=== PATIENT | female | born 1965 | race Caucasian/White ===

== ENCOUNTER 2016-12-20 07:13 | Emergency (ER) | payer OTHER ==
[2016-12-20 07:24] VITALS: BP 142/92; PULSE 90; TEMP 97.6; BMI 26.4
[2016-12-20] MEDS ORDERED: KETOROLAC TROMETHAMINE 60 MG/2 ML VIAL IM ONE (07:55)
--- NOTE | 2016-12-20 08:02 | PDOC ---
History of Present Illness - General Chief Complaint: Pain Stated Complaint: RT HIP PAIN Time Seen by Provider: 12/20/16 07:43 - History of Present Illness Initial Comments: 12/20/16 07:58 Chief complaint: Pain right buttock History of present illness: Patient was bending over yesterday, felt sudden pain in her right buttock radiating down the posterior aspect of the right thigh to the knee. Pain has persisted, there is stiffness. However she is ambulating adequately Review of systems: Denies distal numbness pain or weakness in the lower leg or foot. Denies chest pain, shortness of breath, abdominal pain, nausea, vomiting, diarrhea, urinary tract symptoms, vaginal bleeding or discharge Past medical history: Patient is healthy otherwise, without active medical or surgical problems other than mild hypertension controlled on Micardis Social/family history reviewed and noncontributory Physical exam: Alert oriented 3 well-developed well-nourished no acute distress cheerful and cooperative Afebrile, vital signs normal Head atraumatic. PERRLA, ENT clear Neck supple without bruit mass or nodes Chest clear CV regular without murmur or gallop Abdomen benign Spine: No point tenderness or deformity of the lumbar spine. There is no appreciable straightening and no spasm. There is no tenderness or inflammation of the spine or the right buttock. However, the patient indicates shooting pains from the buttock through the posterior thigh. Straight leg raising is negative. There are no distal sensory or motor deficits in the lower extremity and strength is full. Gait is stable and unimpaired Neurological C2 to 12 intact. No focal sensory or motor deficits. Strength full and symmetric. Gait stable and unimpaired Impression: Minor low back strain, possible sciatica Plan: Rest heat symptomatic medication and follow-up if no improvement. Patient adequately ambulatory and in no significant pain upon discharge to follow-up as directed. Past History - Past Medical History Allergies/Adverse Reactions: Allergies Allergy/AdvReac Type Severity Reaction Status Date / Time No Known Allergies Allergy Verified 12/20/16 07:14 Home Medications: Ambulatory Orders Cyclobenzaprine HCl [Flexeril 10 mg] 10 mg PO TID #15 tablet 12/20/16 Naproxen [Naprosyn] 375 mg PO BID #14 tablet 12/20/16 Telmisartan [Micardis] 80 mg PO DAILY 04/18/17 HTN: Yes - Psycho/Social/Smoking Cessation Hx Anxiety: No Suicidal Ideation: No Smoking History: Never smoked Have you smoked in the past 12 months: No Information on smoking cessation initiated: No Hx Alcohol Use: No Drug/Substance Use Hx: No Substance Use Type: None *Physical Exam - Vital Signs Last Vital Signs Temp Pulse Resp BP Pulse Ox 97.6 F 90 20 142/92 100 12/20/16 07:14 12/20/16 07:14 12/20/16 07:14 12/20/16 07:14 12/20/16 07:14 *DC/Admit/Observation/Transfer Diagnosis at time of Disposition: Low back strain Qualifiers: Encounter type: initial encounter Qualified Code(s): S39.012A - Strain of muscle, fascia and tendon of lower back, initial encounter - Discharge Dispostion Disposition: HOME Condition at time of disposition: Improved Admit: No - Prescriptions Prescriptions: Cyclobenzaprine HCl [Flexeril 10 mg] 10 mg PO TID #15 tablet Naproxen [Naprosyn] 375 mg PO BID #14 tablet - Referrals Referrals: Alan Whipple MD [Staff Physician] - 1 week - Patient Instructions Printed Discharge Instructions: DI for Low Back Pain Additional Instructions: Avoid the sitting position. Maintain ambulation, use heat, and medication as directed. See back specialist if no improvement one week. - Post Discharge Activity Work/School Note: Back to Work
[2016-12-20] MEDS ORDERED: KETOROLAC TROMETHAMINE 60 MG/2 ML VIAL ONE (08:06)
== END 2016-12-20 08:52 | disposition home or self-care (01) ==
LOC: FER 07:13
PROC: 3E0233Z Introduction of Anti-inflammatory into Muscle, Percutaneous Approach (ICD-10-PCS; principal; 2016-12-20)
DX: S39.012A Strain of muscle, fascia and tendon of lower back, initial encounter (principal); X58.XXXA Exposure to other specified factors, initial encounter; Y93.89 Activity, other specified; Y92.9 Unspecified place or not applicable
CPT/HCPCS: 99282-25

== ENCOUNTER 2019-02-05 12:37 | Emergency (ER) | payer OTHER | END 2019-02-05 13:44 | disposition home or self-care (01) | LOC: FER 12:37 ==

== ENCOUNTER 2022-05-13 11:05 | Emergency (ER) | payer OTHER ==
[2022-05-13 11:27] VITALS: TEMP 97.8; BMI 31.2
[2022-05-13 14:45] LABS: BASO % 0.4 % (0-2.0); EOS % 0.7 % (0-4.5); HEMATOCRIT 44.4 % (32.4-45.2); HEMOGLOBIN 14.7 GM/dL (10.7-15.3); LYMPH % 29.9 % (8-40); MCH 28.8 pg (25.7-33.7); MCHC 33.1 g/dl (32.0-36.0); MEAN CELL VOLUME 87.1 fl (80-96); MEAN PLT VOLUME 7.6 fl (7.5-11.1); MONO % 6.1 % (3.8-10.2); NEUT % 62.9 % (42.8-82.8); PLATELET COUNT 318 10^3/uL (134-434); RDW 14.3 % (11.6-15.6); WHITE BLOOD COUNT 10.2 K/mm3 (4.0-10.0)
[2022-05-13 15:02] LABS: EPI CELLS >36 /uL (0-25.1); HYALINE CASTS 1 /uL (0-3.1); URINE APPEARANCE CLEAR; URINE BACTERIA >9,000 /uL (0-1359); URINE BILIRUBIN NEGATIVE (NEGATIVE); URINE COLOR YELLOW; URINE GLUCOSE (UA) NEGATIVE (NEGATIVE); URINE KETONE NEGATIVE (NEGATIVE); URINE LEUK ESTERASE 1+ (NEGATIVE); URINE NITRITE POSITIVE (NEGATIVE); URINE PROTEIN NEGATIVE (NEGATIVE); URINE RBC 39 /uL (0-23.9); URINE UROBILINOGEN 0.2 mg/dL (0.2-1.0); URINE WBC 89 /uL (0-25.8)
[2022-05-13 15:13] LABS: CALCIUM 9.3 mg/dL (8.5-10.1)
[2022-05-13 15:14] LABS: ALBUMIN 3.7 g/dl (3.4-5.0); BLOOD UREA NITROGEN 21.7 mg/dL (7-18); MAGNESIUM 2.4 mg/dL (1.8-2.4)
[2022-05-13 15:17] LABS: CREATININE 0.8 mg/dL (0.55-1.3)
[2022-05-13 15:18] LABS: BILIRUBIN,TOTAL 0.5 mg/dL (0.2-1)
[2022-05-13 15:19] LABS: TOT PROT 7.3 g/dl (6.4-8.2)
[2022-05-13 15:40] VITALS: BP 149/81; PULSE 66; RESP 20
== END 2022-05-13 15:39 | disposition home or self-care (01) ==
LOC: JER 11:05
DX: R00.2 Palpitations (principal)
CPT/HCPCS: 36415; 71046-TC-FY; 80053; 81003; 82550; 83735; 84439; 84443; 84484; 85025; 87086; 87186; 93005; 93010; 99285-25; C9803-CS; U0003; U0005

== ENCOUNTER 2023-01-03 04:27 | Day surgery (SDC) | payer OTHER ==
[2023-01-02 11:07] VITALS: BMI 31.2
[2023-01-03 08:16] VITALS: TEMP 98
[2023-01-03 09:24] VITALS: BP 122/66; PULSE 55; RESP 16
== END 2023-01-03 08:20 | disposition home or self-care (01) ==
LOC: JASU-ENDO 04:27
PROVIDERS: ATTEND Student in an Organized Health Care Education/Training Program
PROC: 0DB78ZX Excision of Stomach, Pylorus, Via Natural or Artificial Opening Endoscopic, Diagnostic (ICD-10-PCS; 2023-01-03)
PROC: 0DB68ZX Excision of Stomach, Via Natural or Artificial Opening Endoscopic, Diagnostic (ICD-10-PCS; 2023-01-03)
PROC: 0DB58ZX Excision of Esophagus, Via Natural or Artificial Opening Endoscopic, Diagnostic (ICD-10-PCS; principal; 2023-01-03 08:00)
DX: K25.9 Gastric ulcer, unspecified as acute or chronic, without hemorrhage or perforation (principal); K29.50 Unspecified chronic gastritis without bleeding; B96.81 Helicobacter pylori [H. pylori] as the cause of diseases classified elsewhere
CPT/HCPCS: 88305-TC; 88342-TC

== ENCOUNTER 2024-05-16 08:19 | Emergency (ER) | payer OTHER ==
[2024-05-16 08:25] VITALS: BP 182/104; PULSE 65; RESP 20; TEMP 97.5; BMI 32.2
[2024-05-16] MEDS ORDERED: IBUPROFEN 600 MG TABLET (FP) PO ONE (09:14)
[2024-05-16] MEDS: IBUPROFEN 600 MG TABLET (FP) PO ONE (09:26)
== END 2024-05-16 09:35 | disposition home or self-care (01) ==
LOC: FER 08:19
DX: R05.9 Cough, unspecified (principal); R09.81 Nasal congestion; R53.83 Other fatigue; U07.1 COVID-19; B34.9 Viral infection, unspecified
CPT/HCPCS: 0241U-QW; 71046-TC-FY; 99284-25